=== PATIENT | female | born 1975 | race Caucasian/White ===

== ENCOUNTER → 2017-05-03 | Outpatient (CLI) | payer BC ==
[2013-05-30 15:30] VITALS: BP 116/74
[~2017-05-03] MED LIST: ED BACLOFEN10 MG PO; LEVAQUIN 5500 MG/TA1 PO; LOPRESSOR50 MG PO; NORCO 325 MG-51 TAB PO; PERCOCET 325 MG1 TA2 PO; PHENERGAN 25 TA25 MG PO; ZYRTEC10 MG PO
== END ==
LOC: LAB 17:05
DX: R35.0 Frequency of micturition (principal)

== ENCOUNTER → 2017-06-23 | Outpatient (CLI) | payer BC ==
[2013-05-30 15:30] VITALS: BP 116/74
== END ==
LOC: LAB 15:55
DX: K52.9 Noninfective gastroenteritis and colitis, unspecified (principal); R00.0 Tachycardia, unspecified; E06.0 Acute thyroiditis; N76.0 Acute vaginitis

== ENCOUNTER → 2017-07-20 | Outpatient (CLI) | payer BC ==
[2013-05-30 15:30] VITALS: BP 116/74
== END ==
LOC: MAMMO 14:37
DX: Z12.31 Encounter for screening mammogram for malignant neoplasm of breast (principal); R92.2 Inconclusive mammogram
CPT/HCPCS: G0202

== ENCOUNTER → 2017-08-05 | Outpatient (CLI) | payer BC ==
[2013-05-30 15:30] VITALS: BP 116/74
== END ==
LOC: MAMMO 12:35
DX: R92.2 Inconclusive mammogram (principal)

== ENCOUNTER → 2017-12-21 | Outpatient (CLI) | payer BC ==
[2013-05-30 15:30] VITALS: BP 116/74
== END ==
LOC: LAB 11-25 16:19
PROVIDERS: Nurse Practitioner Family
DX: E06.0 Acute thyroiditis (principal)